=== PATIENT | male | born 1950 | race Caucasian/White ===

== ENCOUNTER 2020-09-17 08:36 | Outpatient (REF) | payer MEDICARE, SELFPAY ==
[2020-09-19 08:26] LABS: Urine Cytology See Pathology rpt
== END 2020-09-17 08:37 | disposition home or self-care (01) ==
LOC: HO.LNP 08:36
PROVIDERS: Visit Provider Urology
DX: C67.9 Malignant neoplasm of bladder, unspecified (principal); Z13.9 Encounter for screening, unspecified; N20.0 Calculus of kidney; R39.9 Unspecified symptoms and signs involving the genitourinary system
CPT/HCPCS: 52000; 81002; 88112; 99212

== ENCOUNTER 2021-02-10 12:03 | Outpatient (REF) | payer MEDICARE, SELFPAY ==
[2021-02-10 14:17] LABS: Glucose Urine UA NEG (NEG); Leukocyte Esterase Urine NEG (NEG); Nitrite Urine NEG (NEG); PH 6.5 (5.0-8.0); Urine Blood NEG (NEG); Urine Ketones NEG (NEG); Urine Protein NEG (NEG-TRACE)
[2021-02-10 14:23] LABS: Appearance Urine CLEAR; Color Urine YELLOW
[2021-02-10 14:43] LABS: RBC Urine 0 /HPF (0)
== END 2021-02-10 12:04 | disposition home or self-care (01) ==
LOC: HO.LAB 12:03
PROVIDERS: Visit Provider Urology
DX: R39.9 Unspecified symptoms and signs involving the genitourinary system (principal)
CPT/HCPCS: 81001; 87086

== ENCOUNTER → 2021-03-19 08:53 | Outpatient (BNVA) | payer MEDICARE, SELFPAY | PROVIDERS: Visit Provider Urology | DX: C67.9 Malignant neoplasm of bladder, unspecified (principal); N20.0 Calculus of kidney | CPT/HCPCS: 52000; 81002; 99212 ==

== ENCOUNTER → 2021-09-18 08:41 | Outpatient (BNVA) | payer MEDICARE, SELFPAY | PROVIDERS: Visit Provider Urology | DX: N20.0 Calculus of kidney (principal); C67.9 Malignant neoplasm of bladder, unspecified | CPT/HCPCS: 52000; 99212 ==

== ENCOUNTER 2022-02-04 15:39 | Outpatient (REF) | payer MEDICARE, SELFPAY ==
[2022-02-04 16:38] LABS: Appearance Urine HAZY; Color Urine YELLOW; Glucose Urine UA NEG (NEG); Leukocyte Esterase Urine 3+ (NEG); Nitrite Urine POS (NEG); PH 6.5 (5.0-8.0); Specific Gravity - Urine <= 1.005 (1.005-1.025); Urine Blood TRACE (NEG); Urine Ketones NEG (NEG); Urine Protein NEG (NEG-TRACE)
[2022-02-04 16:51] LABS: Bacteria Urine 2+ /LPF; Mucus Urine 1+ /LPF; Squamous Epithelial Cell Urine 1+ /LPF
[2022-02-04 16:52] LABS: WBC Clumps Urine NOTED
== END 2022-02-04 15:40 | disposition home or self-care (01) ==
LOC: HO.LAB 15:39
PROVIDERS: Visit Provider Urology
DX: R39.9 Unspecified symptoms and signs involving the genitourinary system (principal)
CPT/HCPCS: 81001; 87086; 87088; 87186

== ENCOUNTER 2022-02-25 11:24 | Outpatient (REF) | payer MEDICARE, SELFPAY ==
--- NOTE | ~2022-02-25 | US_ITS ---
EXAMINATION: US RETROPERITONEAL LIMITED (RENAL ONLY) CLINICAL INFORMATION: Calculus of kidney. COMPARISON: None TECHNIQUE: Real-time imaging of the kidneys. FINDINGS: RIGHT KIDNEY: 10.2 x 4.3 x 4.4 cm (SAG x AP x TRV). The kidney is normal in size, contour, and echogenicity. Renal cortical thickness is normal. No calculi or focal parenchymal lesions. No hydronephrosis. There is a 3 mm echogenic focus within the midpole, likely nonobstructive calculus. LEFT KIDNEY: 12.3 x 6.2 x 6.0 cm (SAG x AP x TRV). The kidney is normal in size, contour, and echogenicity. Renal cortical thickness is normal. No focal parenchymal lesions or hydronephrosis. Multiple echogenic foci present within the lower pole measuring between 3 and 5 mm. US/US renal BI IMPRESSION: Bilateral nonobstructive intrarenal calculi. No hydronephrosis..
== END 2022-02-25 11:25 | disposition home or self-care (01) ==
LOC: HO.US 11:24
PROVIDERS: Visit Provider Urology
DX: N20.0 Calculus of kidney (principal)
CPT/HCPCS: 76775

== ENCOUNTER 2022-03-04 10:42 | Outpatient (REF) | payer MEDICARE, SELFPAY ==
[2022-03-04 12:48] LABS: Appearance Urine HAZY; Color Urine YELLOW; Glucose Urine UA NEG (NEG); Leukocyte Esterase Urine 3+ (NEG); Nitrite Urine POS (NEG); Specific Gravity - Urine 1.025 (1.005-1.025); Urine Blood 1+ (NEG); Urine Ketones NEG (NEG); Urine Protein 1+ MG/DL (NEG-TRACE)
[2022-03-04 13:18] LABS: Bacteria Urine 4+ /LPF
== END 2022-03-04 10:43 | disposition home or self-care (01) ==
LOC: HO.LAB 10:42
PROVIDERS: Visit Provider Urology
DX: R39.9 Unspecified symptoms and signs involving the genitourinary system (principal)
CPT/HCPCS: 81001; 87086

== ENCOUNTER 2022-03-19 08:59 | Outpatient (REF) | payer MEDICARE, SELFPAY ==
[2022-03-19 16:40] LABS: Urine Cytology See Pathology rpt
== END 2022-03-19 09:00 | disposition home or self-care (01) ==
LOC: HO.LAB 08:59
PROVIDERS: Visit Provider Urology
DX: C67.9 Malignant neoplasm of bladder, unspecified (principal); N40.1 Benign prostatic hyperplasia with lower urinary tract symptoms; N39.0 Urinary tract infection, site not specified; N52.01 Erectile dysfunction due to arterial insufficiency
CPT/HCPCS: 52000; 87086; 88112; 99212

== ENCOUNTER → 2022-04-08 08:29 | Outpatient (BNVA) | payer MEDICARE, SELFPAY | PROVIDERS: Visit Provider Urology | DX: N39.0 Urinary tract infection, site not specified (principal); R33.9 Retention of urine, unspecified; C67.9 Malignant neoplasm of bladder, unspecified | CPT/HCPCS: Q3014 ==

== ENCOUNTER 2022-06-04 08:36 | Outpatient (REF) | payer MEDICARE, SELFPAY ==
[2022-06-04 13:04] LABS: Appearance Urine HAZY; Color Urine YELLOW; Glucose Urine UA NEG (NEG); Leukocyte Esterase Urine 3+ (NEG); Nitrite Urine POS (NEG); Specific Gravity - Urine 1.015 (1.005-1.025); Urine Blood 1+ (NEG); Urine Ketones NEG (NEG); Urine Protein NEG (NEG-TRACE)
[2022-06-04 13:46] LABS: Bacteria Urine 1+ /LPF; WBC Urine TNTC /HPF (0-4)
== END 2022-06-04 08:37 | disposition home or self-care (01) ==
LOC: HO.LAB 08:36
PROVIDERS: Visit Provider Urology
DX: N39.0 Urinary tract infection, site not specified (principal)
CPT/HCPCS: 81001; 87086

== ENCOUNTER → 2022-07-08 08:43 | Outpatient (BNVA) | payer MEDICARE, SELFPAY | PROVIDERS: Visit Provider Urology | DX: N39.0 Urinary tract infection, site not specified (principal); R33.9 Retention of urine, unspecified; C67.9 Malignant neoplasm of bladder, unspecified | CPT/HCPCS: Q3014 ==

== ENCOUNTER 2022-10-08 09:57 | Outpatient (REF) | payer MEDICARE, SELFPAY ==
[2022-10-08 17:17] LABS: Urine Cytology See Pathology rpt
== END 2022-10-08 09:58 | disposition home or self-care (01) ==
LOC: HO.LAB 09:57
PROVIDERS: Visit Provider Urology
DX: C67.9 Malignant neoplasm of bladder, unspecified (principal); N30.20 Other chronic cystitis without hematuria
CPT/HCPCS: 52000; 88112; 99212

== ENCOUNTER 2023-03-17 10:18 | Outpatient (REF) | payer MEDICARE, SELFPAY ==
[2023-03-17 11:38] LABS: Appearance Urine Cloudy; Color Urine Dark Yellow; Glucose Urine UA Negative (Negative); Leukocyte Esterase Urine Large (3+) (Negative); Nitrite Urine Positive (Negative); PH 5.5 (5.0-9.0); UMIC TRIGGER UA YES; Urine Blood Trace (Negative); Urine Ketones Trace mg/dL (Negative); Urine Protein 30 (1+) mg/dL (Neg-Trace)
[2023-03-17 11:50] LABS: Bacteria Urine None Seen (None Seen); Calcium Oxalate Crystals Urine Present; Granular Casts Urine Present; Squamous Epithelial Cell Urine 0-2 /HPF (0-2); WBC Urine >50 /HPF (0-5)
== END 2023-03-17 10:19 | disposition home or self-care (01) ==
LOC: HO.LAB 10:18
PROVIDERS: Visit Provider Urology
DX: N39.0 Urinary tract infection, site not specified (principal)
CPT/HCPCS: 81001; 87086

== ENCOUNTER 2023-04-08 09:38 | Outpatient (REF) | payer MEDICARE, SELFPAY | END 2023-04-08 09:39 | disposition home or self-care (01) | LOC: HO.LAB 09:38 | PROVIDERS: Visit Provider Urology | DX: N32.0 Bladder-neck obstruction (principal); R33.9 Retention of urine, unspecified; N52.01 Erectile dysfunction due to arterial insufficiency | CPT/HCPCS: 52000; 99212 ==

== ENCOUNTER 2023-11-11 11:08 | Outpatient (REF) | payer MEDICARE, SELFPAY ==
[2023-11-11 13:20] LABS: PSA,Total (Free>4and<10) 2.41 ng/mL (0.00-4.00)
[2023-11-11 13:37] LABS: Appearance Urine Cloudy; Color Urine Yellow; Glucose Urine UA Negative (Negative); Leukocyte Esterase Urine Large (3+) (Negative); Nitrite Urine Positive (Negative); PH 5.5 (5.0-9.0); UMIC TRIGGER UA YES; Urine Blood Small (1+) (Negative); Urine Ketones Trace mg/dL (Negative); Urine Protein Trace mg/dL (Neg-Trace)
[2023-11-11 13:41] LABS: Bacteria Urine 4+ (None Seen); Hyaline Casts Urine 0-2 /LPF (0-2); Squamous Epithelial Cell Urine 0-2 /HPF (0-2); WBC Urine >50 /HPF (0-5)
== END 2023-11-11 11:09 | disposition home or self-care (01) ==
LOC: HO.LAB 11:08
PROVIDERS: Visit Provider Urology
DX: N39.0 Urinary tract infection, site not specified (principal); N40.1 Benign prostatic hyperplasia with lower urinary tract symptoms; Z12.5 Encounter for screening for malignant neoplasm of prostate
CPT/HCPCS: 36415; 81001; 84153; 87086

== ENCOUNTER 2023-12-13 14:44 | Outpatient (AMB) | payer MEDICARE, SELFPAY ==
--- NOTE | 2023-12-13 15:05 | A.OFFVIS_ITS ---
Intake Intake Visit Reasons: 6m PSA/cysto/SPT discuss Intake Note: Patient is Present for Cystoscopy Urology Med: Finasteride, Sildenafil, Tamsulosin Antibiotic Allergy:None Blood Thinner: None URO- G Disposable Cystoscope lot: [id number] exp: 05/04/2025 Allergies simvastatin Allergy (Unknown, Verified 12/13/23 15:16) Unknown Medication List - Last Reconciled 12/13/23 by Ji Hollis MD alirocumab mg subcut divalproex 500 mg PO BID divalproex mg PO finasteride 5 mg PO DAILY fosfomycin tromethamine 1 packet PO .weekly levetiracetam 1,000 mg PO BID levetiracetam 1,500 mg PO BID levofloxacin 500 mg PO DAILY 10 days sildenafil 100 mg PO ONCE PRN 30 days tamsulosin 0.4 mg PO BEDTIME 90 days HPI HPI Comments History of Present Illness Details Addison is a very pleasant male. He is a patient of Dr Nayely huertas. He is seen for the following conditions - bladder cancer - nephrolithiasis - lower urinary tract symptoms - recurring UTI - incomplete bladder emp tying started after stroke Chronic cystitis No bladder cancer recurrence Discussed prostate procedure as has trilobar hypertrophy Also started discussion regarding suprapubic tube Since stroke in late 2020 has had incomplete bladder emptying, worsened after recent seizure, unable to perform CIC Cystoscopy with inflamed bladder Had been unable to perform clean intermittent catheterization secondary to prostate size and lack of hand function Has remained on fosfomycin suppression which appears to still be working Will continue with fosfomycin 1 dose every 2 weeks Nephrolithiasis Urolithiasis was diagnosed Many years ago. He passed stones frequently. Had previously had bladder stones.. The patient previously had kidney stones whose composition w Uric acid, a calcium oxalate 03/09 CaOx, CaPhO Imaging - 01/11 US right kidney 2.2 cm cyst, left kidney 2 small stones 2 mm Current symptoms include None Bladder Cancer: Diagnosed in October 2012. TURBT. TA low-grade. -Imaging October 2012 negative -Cytology March 2015 negative, Sep 2016 negative, 03/07 Negative, 03/08 Normal -Cystoscopy August 2015 negative, February 2016 negative, Aug 2016 negative, February 2017 Negative, February 2018 Negative August 2018 Negative February 2019 NAD Aug 2019 NAD - has large median lobe on prostate. - Aug 2020 NAD - small harmatoma posterior wall - 03/11 NAD, 09/10 NAD, 09/11 Cystitis chronic Lower Urinary Tract Symptoms: Current visit is for further evaluation of, lower urinary tract symptoms, predominate obstructive symptoms. Current treatment includes flomax, finasteride - had stroke with significant initial deficit Prostate Symptom Score 09/08 , Mild (0-8), Bother 2. Symptoms include 09/08 , incomplete emptying, weak stream, and are stable. PSA 03/2019 1.9 per patient 05/2020 2.35 PFS Medical History Atrial fibrillation OA (osteoarthritis) Benign prostatic hyperplasia with lower urinary tract symptoms Other retention of urine Acute cystitis without hematuria Bilateral nephrolithiasis Bladder calculi Bladder CA in situ Surgical History History of surgery Family History Father Lung cancer Review of Systems Const Denies chills and Denies fever(s) Card Reports no additional complaints and Denies syncope Resp Denies cough GI Denies abdominal pain and Denies heartburn Reports as per HPI and Denies change in libido Neuro Denies syncope Psych Denies change in libido Endo Denies change in libido Physical Exam Const General: cooperative, healthy appearing, comfortable and no acute distress Orientation/consciousness: patient oriented x3 HEENT Face and sinus: Yes normal facial exam Mouth: moist mucous membranes Neck Neck: Yes normal visual inspection, Yes full ROM and Yes trachea midline Chest Chest palpation & inspection: normal inspection of the chest Resp Effort & Inspection: normal respiratory effort, able to speak in complete sentences and no respiratory distress GI Inspection: Yes normal to inspection Back/Spine/Pelvis Cervical Spine: normal cervical lordosis Thoracic/Lumbar Spine: thoracic and lumbar spine normal to inspection Skin General skin exam: no rashes or lesions noted Neuro General: patient oriented x3, gait normal, tone normal and moves all extremities Extrem General: Yes normal to inspection and Yes capillary refill normal Office Procedures Cystoscopy Consent Discussed risk and benefit or proposed procedure with the patient. Information consent for procedure given to the patient. Discussed technical aspects, risks, benefits and alternatives in full. Addressed all of the patient's questions and concerns regarding the procedure. The patient demonstrated knowledge and understanding. They wish to proceed with this procedure. Preparation The patient was prepped in the usual manner. A laborer pole crew was present and in the room. Genitalia was prepped with betadine solution in a sterile manner. Lidocaine Jelly 2% was placed into the urethra and 16Fr flexible Olympus cystoscope was inserted into the meatus after adequate lubrication. Procedure Meatus circumcised Urethra anterior and posterior urethra normal Prostatic Urethra trilobar hyperplasia Bladder examination with retroflexion of cystoscope Bladder Orifices normal shape and position Bladder Capacity large Trabeculations grade 2 Cellule Formation yes Diverticulum Formation - Mucosal Erythema - Bladder Tumor - [id number] DISPOSABLE SCOPE URO-G FLEXIBLE SCOPE Procedure code (CPT) selection complete Office Meds lidocaine HCl 2 % mucosal jelly in applicator Performing Provider: Ji Hollis MD Performing Location: [facility] Administered by: Debra Lipscomb RN on 12/13/23 15:33 Dose Route Admin Location Dispensed Lot Number Expiration Date [facility] [employer] Maker 10 mL intra-urethral 10 mL nitrofurantoin monohydrate/macrocrystals 100 mg capsule Performing Provider: Ji Hollis MD Performing Location: [facility] Administered by: Debra Lipscomb RN on 12/13/23 15:33 2 Dose Route Admin Location Dispensed Lot Number Expiration Date [place] [employer] Maker 100 mg PO 1 cap naproxen 500 mg tablet Performing Provider: Ji Hollis MD Performing Location: [facility] Administered by: Debra Lipscomb RN on 12/13/23 15:33 Dose Route Admin Location Dispensed Lot Number Expiration Date [place] [employer] Maker 500 mg PO 1 tab Results AMB Urinalysis, Automated UA Leukoctes 125 Pablo/uL Last Edit by ELMO Guzman on 12/13/23 15:17 UA Nitrite Positive Last Edit by ELMO Guzman on 12/13/23 15:17 UA Urobilinogen 0.2 mg/dL Last Edit by ELMO Guzman on 12/13/23 15:1 7 UA Protein 15 mg/dL Last Edit by ELMO Guzman on 12/13/23 15:17 UA pH 6.0 Last Edit by ELMO Guzman on 12/13/23 15:17 UA Blood 10 Ian/uL Last Edit by Cheyenne López, RMA on 12/13/23 15:17 UA Specific [place] 1.020 Last Edit by Cheyenne López, RMA on 12/13/23 15: 17 UA Ketone Negative Last Edit by Cheyenne López, RMA on 12/13/23 15:17 UA Bilirubin 0 mg/dL Last Edit by Cheyenne López, RMA on 12/13/23 15:17 UA Glucose 0 mg/dL Last Edit by Cheyenne Masonro, RMA on 12/13/23 15:17 Results Reviewed Results Reviewed: Laboratory Last Values Urine pH (Auto) 6.0 12/13/23 15:16 Specific [place] (Auto) 1.020 12/13/23 15:16 Urine Protein (Auto) 15 mg/dL 12/13/23 15:16 Glucose (UA)(Auto) 0 mg/dL 12/13/23 15:16 Urine Ketones (Auto) Negative 12/13/23 15:16 Urine Blood (Auto) 10 Ian/uL 12/13/23 15:16 Urine Nitrite (Auto) Positive 12/13/23 15:16 Urine Bilirubin (Auto) 0 mg/dL 12/13/23 15:16 Urine Urobilinogen (Auto) 0.2 mg/dL 12/13/23 15:16 Leukocyte Esterase (Auto) 125 Pablo/uL 12/13/23 15:16 Assessment & Plan Assessment & Plan (1) Chronic cystitis: Code(s): N30.20 - Other chronic cystitis without hematuria (2) Urinary retention with incomplete bladder emptying: Comment: Worsened following stroke in 2020 Code(s): R33.9 - Retention of urine, unspecified Plan Risks, benefits and alternatives to therapy were discussed. These include but are not limited to infection, bleeding, damage to local organs and tissues, need for further interventions. Anesthetic risks regarding cardiac arrhythmia, blood clots, and potential mortality were discussed. The patient understands the typical recovery time and the outpatient nature of the procedure. After consideration of these risks the patient gives full informed consent and they wish to move ahead with the procedure. GreenLight laser prostatectomy Orders: Orders AMB Urinalysis Automated 12/13/23 Z13.9 - Encounter for screening, unspecified AMB Cystoscopy 12/13/23 N30.20 - Other chronic cystitis without hematuria, R33.9 - Retention of urine, unspecified, C67.9 - Malignant neoplasm of bladder, unspecified, R39.9 - Unspecified symptoms and signs involving the genitourinary system AMB Post Void Residual by ultrasound 12/13/23 R33.9 - Retention of urine, unspecified Patient Instructions: Imaging studies, laboratory and physical exam results were discussed and reviewed in detail. No major barriers to patient understanding were identified. An opportunity to ask questions regarding the treatment plan was provided. All questions were answered. The patient expressed understanding and agreement with the above treatment plan. The patient is aware they should contact our office by phone for worsening of their current condition or the appearance of new urologic symptoms. Compliance is encouraged with any medications and followup testing that is ordered. It is a privilege to participate in the urologic care of your patient. If you have any questions or concerns regarding treatment for the above conditions, or other urologic issues, please do not hesitate to contact me. The office telephone contact is [phone]. This note is constructed using voice recognition software. While every effort has been made to ensure accuracy cherry picker operator errors may have been included. Yours sincerely, Dr Ji Hollis MD, [facility] - Urology Providers of Expert, Compassionate Care for the Genitourinary System Coding Level of Care Code Est Pt Level 4 (29189) Diagnoses Chronic cystitis N30.20 Urinary retention with incomplete bladder emptying R33.9 CPT Codes Cystoscopy - CPT: [id number] ([id number])
== END 2023-12-13 15:57 | disposition home or self-care (01) ==
PROVIDERS: Visit Provider Urology
DX: N30.20 Other chronic cystitis without hematuria (principal); R33.9 Retention of urine, unspecified; C67.9 Malignant neoplasm of bladder, unspecified; R39.9 Unspecified symptoms and signs involving the genitourinary system; Z13.9 Encounter for screening, unspecified
CPT/HCPCS: 52000; 99214

== ENCOUNTER → 2023-12-13 14:44 | Outpatient (BNVA) | payer MEDICARE, SELFPAY | PROVIDERS: Visit Provider Urology | DX: N30.20 Other chronic cystitis without hematuria (principal); R33.9 Retention of urine, unspecified; N20.0 Calculus of kidney; Z85.51 Personal history of malignant neoplasm of bladder | CPT/HCPCS: 52000; 81003; 99212 ==

== ENCOUNTER 2024-02-07 14:28 | Outpatient (AMB) | payer MEDICARE, SELFPAY ==
--- NOTE | 2024-02-07 14:29 | A.OFFVIS_ITS ---
Intake Visit Reasons: H&P Greenlight Intake Note: Patient is Present for Telephone Follow Up h&p Urology Med: Finasteride, Tamsulosin, Sildenafil Antibiotic Allergy: none Blood Thinner:none Allergies simvastatin Allergy (Unknown, Verified 02/13/24 08:31) Unknown martinez pepper Allergy (Verified 02/13/24 08:31) Anaphylaxis codeine Allergy (Verified 02/13/24 08:31) Unknown losartan Allergy (Verified 02/13/24 08:31) Flushing NSAIDS (Non-Steroidal Anti-Inflamma Allergy (Verified 02/13/24 08:31) Unknown HPI Comments Details: Addison is a very pleasant male. He is a patient of Dr Bazzi. He is seen for the following conditions - bladder cancer - nephrolithiasis - lower urinary tract symptoms - recurring UTI - incomplete bladder emptying started after stroke Telemedicine Evaluation 15 min Consultation [employer] Preference for spinal anesthetic - has had multiple in past Plan upcoming laser prostate surgery Chronic cystitis No bladder cancer recurrence Discussed prostate procedure as has trilobar hypertrophy Also started discussion regarding suprapubic tube Since stroke in late 2020 has had incomplete bladder emptying, worsened after recent seizure, unable to perform CIC Cystoscopy with inflamed bladder Had been unable to perform clean intermittent catheterization secondary to prostate size and lack of hand function Has remained on fosfomycin suppression which appears to still be working Will continue with fosfomycin 1 dose every 2 weeks Nephrolithiasis Urolithiasis was diagnosed Many years ago. He passed stones frequently. H ad previously had bladder stones.. The patient previously had kidney stones whose composition w Uric acid, a calcium oxalate 03/09 CaOx, CaPhO Imaging - 01/11 US right kidney 2.2 cm cyst, left kidney 2 small stones 2 mm Current symptoms include None Bladder Cancer: Diagnosed in October 2012. TURBT. TA low-grade. -Imaging October 2012 negative -Cytology March 2015 negative, Sep 2016 negative, 03/07 Negative, 03/08 Normal -Cystoscopy August 2015 negative, February 2016 negative, Aug 2016 negative, February 2017 Negative, February 2018 Negative August 2018 Negative February 2019 NAD Aug 2019 NAD - has large median lobe on prostate. - Aug 2020 NAD - small harmatoma posterior wall - 03/11 NAD, 09/10 NAD, 09/11 Cystitis chronic Lower Urinary Tract Symptoms: Current visit is for further evaluation of, lower urinary tract symptoms, predominate obstructive symptoms. Current treatment includes flomax, finasteride - had stroke with significant initial deficit Prostate Symptom Score 09/08 , Mild (0-8), Bother 2. Symptoms include 09/08 , incomplete emptying, weak stream, and are stable. PSA 03/2019 1.9 per patient 05/2020 2.35 [facility] Medical History CVA (cerebral vascular accident) Seizures Hx of carpal tunnel syndrome Hx of glossitis Hyperlipidemia History of cardioversion Atrial fibrillation OA (osteoarthritis) Benign prostatic hyperplasia with lower urinary tract symptoms Other retention of urine Acute cystitis without hematuria Bilateral nephrolithiasis Bladder calculi Bladder CA in situ Surgical History History of total left knee replacement History of total right knee replacement History of total hip replacement Hx of carpal tunnel repair Hx of eye surgery Hx of arthroscopy of knee H/O colonoscopy Hx of brain surgery History of surgery Family History Father Lung cancer Social History Patient Tobacco Use Status: Never used Tobacco Review of Systems Const All systems reviewed & are unremarkable except as noted in HPI and below Reports no additional complaints Resp Reports no additional complaints GI Reports no additional complaints Reports as per HPI Musc Reports no additional complaints Physical Exam Telemedicine evaluation Appropriate responses Regular breathing rate and rhythm HEENT Head: Yes normal to inspection Ears: hearing grossly normal bilaterally Eyes General: appearance normal, both eyes and all related structures Neck Neck: Yes normal visual inspection Chest Chest palpation & inspection: normal inspection of the chest Resp Effort & Inspection: normal respiratory effort and able to speak in complete sentences Telehealth Telehealth Location of provider rendering services: practice address Location of patient: address on file Patient Identification confirmed using: Name, : Yes Telehealth method: video Patient verbally consented to treatment: Yes Patient verbally consented to billing insurance company: Yes Patient informed of any privacy concerns related to visit: Yes Assessment & Plan Assessment & Plan (1) Chronic cystitis: Code(s): N30.20 - Other chronic cystitis without hematuria Category: Medical (2) Urinary retention with incomplete bladder emptying: Comment: Worsened following stroke in 2020 Code(s): R33.9 - Retention of urine, unspecified Category: Medical (3) Benign prostatic hyperplasia with lower urinary tract symptoms: Code(s): N40.1 - Benign prostatic hyperplasia with lower urinary tract symptoms Category: Medical Plan Procedure as planned Patient Instructions: Imaging studies, laboratory and physical exam results were discussed and reviewed in detail. No major barriers to patient understanding were identified. An opportunity to ask questions regarding the treatment plan was provided. All questions were answered. The patient expressed understanding and agreement with the above treatment plan. The patient is aware they should contact our office by phone for worsening of their current condition or the appearance of new urologic symptoms. Compliance is encouraged with any medications and followup testing that is ordered. It is a privilege to participate in the urologic care of your patient. If you have any questions or concerns regarding treatment for the above conditions, or other urologic issues, please do not hesitate to contact me. The office telephone contact is [phone]. This note is constructed using voice recognition software. While every effort has been made to ensure accuracy histological illustrator errors may have been included. Yours sincerely, Dr Ji Hollis MD, [facility] - Urology Providers of Expert, Compassionate Care for the Genitourinary System
== END 2024-02-07 15:45 | disposition home or self-care (01) ==
LOC: HO.HUSH 14:28
PROVIDERS: Visit Provider Urology
DX: N30.20 Other chronic cystitis without hematuria (principal); R33.9 Retention of urine, unspecified; N40.1 Benign prostatic hyperplasia with lower urinary tract symptoms
CPT/HCPCS: 99213

== ENCOUNTER → 2024-02-07 14:28 | Outpatient (BNVA) | payer MEDICARE, SELFPAY | PROVIDERS: Visit Provider Urology ==

== ENCOUNTER 2024-02-13 07:55 | Day surgery (SDC) | payer MEDICARE, SELFPAY ==
--- NOTE | 2024-02-10 12:10 | HO.ANESPROP2 ---
Documented by User: Sarai Abel NP 02/10/24 12:13 HPI - Anesthesia Eval Consult details Narrative: 73yo M for Laser Ablation Prostate w/Green Light Cardiac cleared PAF - no anticoag d/t hx hemmorhagic stroke 2013 and subdural hematoma 2017 [facility] Active Problems Active Problems: All Active Problems (Updated 02/09/24 @ 10:38 by Deana Kitchen RN) Chronic cystitis (Acute) Urinary retention with incomplete bladder emptying (Acute) Erectile dysfunction due to arterial insufficiency (Acute) Recurrent UTI (Acute) UTI symptoms (Acute) Bladder cancer (Acute) Nephrolithiasis (Acute) Benign prostatic hyperplasia with lower urinary tract symptoms (Acute) Past Medical History Medical History CVA (cerebral vascular accident) Seizures Hx of carpal tunnel syndrome Hx of glossitis Hyperlipidemia History of cardioversion Atrial fibrillation OA (osteoarthritis) Benign prostatic hyperplasia with lower urinary tract symptoms Other retention of urine Acute cystitis without hematuria Bilateral nephrolithiasis Bladder calculi Bladder CA in situ Family History Family History Father Lung cancer Surgical History Surgical History History of total left knee replacement History of total right knee replacement History of total hip replacement Hx of carpal tunnel repair Hx of eye surgery Hx of arthroscopy of knee H/O colonoscopy Hx of brain surgery History of surgery Social History Social History Patient Tobacco Use Status: Never used Tobacco Meds Allergies Allergy/AdvReac Type Severity Reaction Status Date / Time simvastatin Allergy Unknown Unknown Verified 02/13/24 08:31 martinez pepper Allergy Anaphylaxis Verified 02/13/24 08:31 codeine Allergy Unknown Verified 02/13/24 08:31 losartan Allergy Flushing Verified 02/13/24 08:31 NSAIDS (Non-Steroidal Allergy Unknown Verified 02/13/24 08:31 Anti-Inflamma Home Medications Medication Instructions Recorded Confirmed Last Taken Type alirocumab 75 mg/mL subcutaneous mg subcut 09/17/20 12/13/23 Unknown History pen injector divalproex 500 mg tablet,delayed 500 mg PO BID 09/17/20 02/13/24 02/13/24 History release finasteride 5 mg tablet 5 mg PO DAILY 09/17/20 12/13/23 Unknown History divalproex 250 mg tablet,delayed 250 mg PO BID 04/08/22 02/13/24 02/13/24 History release levetiracetam 1,000 mg tablet 1,000 mg PO BID 04/08/22 02/13/24 02/13/24 History levetiracetam 750 mg tablet 1,500 mg PO BID 04/08/23 02/13/24 02/13/24 History Exam Narrative Narrative: EKG 12/2023 SB @ [address] and t wave abn ECHO 2021 (per clearance note) LVEF 53% with beat to beat variability. RV dilation and reduced function. No signif valve ds. Trivial pericardial effusion. Assessment and Plan Assessment Anesthesia Assessment: Chart Reviewed Documented by User: Dean Kerr MD 02/13/24 10:01 [facility] Past Medical History Medical History CVA (cerebral vascular accident) Seizures Hx of carpal tunnel syndrome Hx of glossitis Hyperlipidemia History of cardioversion Atrial fibrillation OA (osteoarthritis) Benign prostatic hyperplasia with lower urinary tract symptoms Other retention of urine Acute cystitis without hematuria Bilateral nephrolithiasis Bladder calculi Bladder CA in situ Family History Family History Father Lung cancer Family history of problems with anesthesia: No Surgical History Surgical History History of total left knee replacement History of total right knee replacement History of total hip replacement Hx of carpal tunnel repair Hx of eye surgery Hx of arthroscopy of knee H/O colonoscopy Hx of brain surgery History of surgery History of Problems with Anesthesia: No Social History Social History Patient Tobacco Use Status: Never used Tobacco Meds Allergies Allergy/AdvReac Type Severity Reaction Status Date / Time simvastatin Allergy Unknown Unknown Verified 02/13/24 08:31 martinez pepper Allergy Anaphylaxis Verified 02/13/24 08:31 codeine Allergy Unknown Verified 02/13/24 08:31 losartan Allergy Flushing Verified 02/13/24 08:31 NSAIDS (Non-Steroidal Allergy Unknown Verified 02/13/24 08:31 Anti-Inflamma Home Medications Medication Instructions Recorded Confirmed Last Taken Type alirocumab 75 mg/mL subcutaneous mg subcut 09/17/20 12/13/23 Unknown History pen injector divalproex 500 mg tablet,delayed 500 mg PO BID 09/17/20 02/13/24 02/13/24 History release finasteride 5 mg tablet 5 mg PO DAILY 09/17/20 12/13/23 Unknown History divalproex 250 mg tablet,delayed 250 mg PO BID 04/08/22 02/13/24 02/13/24 History release levetiracetam 1,000 mg tablet 1,000 mg PO BID 04/08/22 02/13/24 02/13/24 History levetiracetam 750 mg tablet 1,500 mg PO BID 04/08/23 02/13/24 02/13/24 History Exam Airway Mallampati Class: I TM Dist: >3cm Neck ROM: Full Loose/Missing/Broken Teeth: No Heart: ok Lungs: ok Assessment and Plan Assessment Anesthesia Assessment: Anesthesia Plan Discussed Final Anesthetic Review Family History of Problems with Anesthesia: No History of Problems with Anesthesia: No NPO: Yes ASA Class: III Final Preanesthetic Review: No Changes in Pt Med Stat, Meds/Allgs Chart Reviewed, Consent Obtained/Reviewed and Anes Risks/Benef Reviewed Patient Risk: Intermediate Procedure Risk: Low Anesthetic Plan Anesthetic Plan: GA and Agree w/ Assess. and Plan Disposition: Standard PACU
[2024-02-13] VITALS (7 sets, daily range): BP systolic 98–117; BP diastolic 61–72; PULSE 50–59; RESP 16; TEMP 36.1–36.2; O2SAT 94–99; BMI 24.1
[2024-02-13] MEDS: Lactated Ringers 1,000 ML 100 ML IVCONT (08:48)
--- NOTE | 2024-02-13 09:23 | MHC.SHP ---
Pre-Procedural Eval Section A - 24 Hr Update-Section A only Date of Service: 02/13/24 The patient is an INPATIENT: No Changes since office visit: No Cold of Flu in the past 2 weeks, No New Medical Problems, No Changes in Medication and No Patient answered all questions The patient has been examined within 24 hours of the surgical procedure. The History & Physical has been completed within 30 days and I have reviewed it.: Yes Section B - Complete if H&P > 30 days Chief Complaint: Retention of urine, unspecified Allergies: Allergies Allergy/AdvReac Type Severity Reaction Status Date / Time simvastatin Allergy Unknown Unknown Verified 02/13/24 08:31 martinez pepper Allergy Anaphylaxis Verified 02/13/24 08:31 codeine Allergy Unknown Verified 02/13/24 08:31 losartan Allergy Flushing Verified 02/13/24 08:31 NSAIDS (Non-Steroidal Allergy Unknown Verified 02/13/24 08:31 Anti-Inflamma Plan Diagnosis/Plan: Unchanged (GreenLight laser prostatectomy) I have reviewed the history and physical and performed a pertinent physical examination on my patient. No changes have occurred unless specified. Time Spent With Patient Time: Total time managing care of this patient today ____ minutes.
--- NOTE | 2024-02-13 10:45 | P.OP_ITS ---
Operative Note Operative Note Date of Service: 02/13/24 Narrative: PreOperative Diagnosis: Bladder outlet obstruction Post Operative Diagnosis: 1) Bladder outlet obstruction 2) Bladder stone laser >2cm Procedure: 1) bladder stone holmium laser 2) GreenLight Laser Enucleation of the prostate CPT 09325 Surgeon: Dr Ji Hollis Anesthesia: General Indications for procedure: progressive increase in PVR History of bladder outlet obstruction. Treated with alpha-jaimee and other medications. Still with symptoms. On cystoscopy in office has trilobar prostate. Recommendation for prostate procedure with laser enucleation of prostate. Risks and benefits have been discussed. Focus was placed on development of retrograde ejaculation which is a normal part of this procedure. Procedure: After informed consent was verified the patient was brought to the operating room and placed in a supine position. Anesthesia was administered per protocol. Patient was placed in modified dorsal lithotomy position and prepped and draped in a sterile fashion. Safety pause time-out was confirmed. Antibiotics have been given. A Twenty-four Macedonian laser cystoscope was inserted per urethra. No abnormalities were found of the anterior and bulbar urethra. The bladder was examined and both ureteric orifices were seen in their normal positions away from the area of interest. 2cm bladder stone encountered Using Holmium laser with 865nm fiber and setttings of 12W the stone was broken into small pieces and flushed from the bladder Using a GreenLight laser with settings of 80 w incisions were made at the 5 and 7 o'clock position. The incisions were taken down from the bladder neck down to the level of the veru. These were gradually deepened in order to define the lateral aspects of the median lobe area. Once clearly defined they will also extended in the lateral directions in order to create a deep groove. The median lobe was then ablated and enucleated tissue released into the bladder with the laser power increased to 120 W. Once the median lobe area had been cleared attention was directed to the lateral lobes. Starting with the patient's left lateral lobe. First the 05:00 o'clock groove was further developed. This was moved in the lateral direction to undermine the tissue on the lateral side running from the bladder neck to the prostate apex. Focus was then placed on the laser at the 1 o'clock position to developing a secondary groove down to the level of bladder fibers. The creation of a second deep groove defined a segment of intervening tissue similar to a slice of orange. At the apex of the prostate the 2 grooves were linked the us releasing the intervening tissue. This tissue was then removed with a combination of enucleation and ablation working from the apex toward the bladder neck. A similar procedure was repeated on the patient's right-hand side. The only differences being the position of the lateral groove at the 7 'oclock position and the secondary groove at the 11 o'clock position, Otherwise the procedure was developed in a mirror fashion. After the majority of tissue had been debulked remnant tissue was ablated with the side fire laser and the curve of the prostate followed up each side wall clearly defining the anterior remnant strip that remained between the 11 and 1 o'clock positions. In this case the anterior tissue protruded into the prostatic fossa and was partially ablated with the laser When this was had been completed debris and pieces of prostate were removed from the bladder with irrigation. Both ureteric orifices were reviewed again in shown to be patent in away from any areas of energy damage. The apical area was reviewed in any stray ooze was controlled. A 22 Macedonian 30 cc balloon Greene catheter was placed over a stylet into the bladder. Clear efflux was obtained upopn irrigation with a Papito piston syringe. 50 cc was placed in the balloon and gentle traction was placed. A snap was used to hold tension on the catheter to control bleeding during patient moved and transported. A drainage bag was placed. Once transportation is complete to the PACU the snap will be removed. The patient tolerated the procedure well, he was extubated in the operating and transferred in a stable condition to the recovery area. Total Power 150 kW Lasing time 34 min Pathology: Prostate tissue Drains: Greene catheter
--- NOTE | 2024-02-13 13:01 | HO.INF ---
PATIENT BROUGHT BACK TO PACU AT THIS TIME. PATIENT HAVING DIFFICULTY URINATING. APPROX 50 ML OUT CRANBERRY COLOR WITH SOME CLOTS. BLADDER FEELS DISTENDED. PATIENT STATES HE DOES NOT FEEL RIGHT.
--- NOTE | 2024-02-13 13:14 | PC.NURSE ---
Pt back to PACU. Complaining of bladder feeling full . Lower abd non tender, non distended,pt states that it doesnt feel tight like a drum . Catheter appears patent and draining pink tinged urine. Bladder scanned for 3ml. Pt back to discharge area.
--- NOTE | 2024-02-13 14:02 | HO.INF ---
PATIENT BROUGHT BACK TO THE DC AREA AFTER BLADDER SCAN COMPLETED IN PACU. PATIENT STATES HE FEELS BETTER. PATIENT BEING DC'D HOME.
== END 2024-02-13 14:04 | disposition home or self-care (01) ==
PROVIDERS: Visit Provider Urology
PROC: (CPT 52648; principal; 2024-02-13 11:00)
DX: N40.1 Benign prostatic hyperplasia with lower urinary tract symptoms (principal); R33.8 Other retention of urine; N32.0 Bladder-neck obstruction; N30.20 Other chronic cystitis without hematuria; Z87.442 Personal history of urinary calculi; Z85.51 Personal history of malignant neoplasm of bladder; I48.91 Unspecified atrial fibrillation; Z86.73 Personal history of transient ischemic attack (TIA), and cerebral infarction without residual deficits; Z79.899 Other long term (current) drug therapy; Z88.8 Allergy status to other drugs, medicaments and biological substances; Z98.890 Other specified postprocedural states
CPT/HCPCS: 52649; 52317; 88305; J1956; J2704; J3010

== ENCOUNTER → 2024-02-13 07:55 | Outpatient (BNV) | payer MEDICARE, SELFPAY | PROVIDERS: Visit Provider Urology | DX: N32.0 Bladder-neck obstruction (principal); N21.0 Calculus in bladder | CPT/HCPCS: 52317; 52649 ==

== ENCOUNTER → 2024-02-17 08:23 | Outpatient (BNVA) | payer MEDICARE, SELFPAY | PROVIDERS: Visit Provider Urology | DX: R33.9 Retention of urine, unspecified (principal) | CPT/HCPCS: 51700; 51798 ==

== ENCOUNTER 2024-03-21 11:27 | Outpatient (REF) | payer MEDICARE, SELFPAY | END 2024-03-21 11:28 | disposition home or self-care (01) | LOC: HO.LAB 11:27 | PROVIDERS: Visit Provider Urology | DX: C67.9 Malignant neoplasm of bladder, unspecified (principal); R33.9 Retention of urine, unspecified; R39.9 Unspecified symptoms and signs involving the genitourinary system; Z86.73 Personal history of transient ischemic attack (TIA), and cerebral infarction without residual deficits | CPT/HCPCS: 51798; 81003; 87086; 99212 ==

== ENCOUNTER 2024-03-21 11:27 | Outpatient (AMB) | payer MEDICARE, SELFPAY ==
--- NOTE | 2024-03-21 11:40 | A.OFFVIS_ITS ---
Intake Visit Reasons: 6wks Follow up - Greenlight Intake Note: Patient Is Present for Post Op Follow up Procedure Done: [facility] Med: Tamsulosin, Sildenafil, Finasteride Antibiotic Allergy:None Blood Thinner: None PVR: Allergies simvastatin Allergy (Unknown, Verified 03/21/24 11:41) Unknown martinez pepper Allergy (Verified 03/21/24 11:41) Anaphylaxis codeine Allergy (Verified 03/21/24 11:41) Unknown losartan Allergy (Verified 03/21/24 11:41) Flushing NSAIDS (Non-Steroidal Anti-Inflamma Allergy (Verified 03/21/24 11:41) Unknown HPI Comments Details: Addison is a very pleasant male. He is a patient of Dr Bazzi. He is seen for the following conditions - bladder cancer - nephrolithiasis - lower urinary tract symptoms - recurring UTI - incomplete bladder emptying started after stroke Follow-up GreenLight laser Postoperative course was vic after he had another fall Significant improvement in bladder emptying Nocturia x2 down from 6 Very happy with stream PVR today 25 cc May have UTI Culture performed Will do 3 doses of fosfomycin since he has this on hand Six-month follow-up cysto for bladder cancer Nephrolithiasis Urolithiasis was diagnosed Many years ago. He passed stones frequently. Had previously had bladder stones.. The patient previously had kidney stones whose composition w Uric acid, a calcium oxalate 03/09 CaOx, CaPhO Imaging - 01/11 US right kidney 2.2 cm cyst, left kidney 2 small stones 2 mm Current symptoms include None Bladder Cancer: Diagnosed in October 2012. TURBT. TA low-grade. -Imaging October 2012 negative -Cytology March 2015 negative, Sep 2016 negative, 03/07 Negative, 03/08 Normal -Cystoscopy August 2015 negative, February 2016 negative, Aug 2016 negative, February 2017 Negative, February 2018 Negative August 2018 Negative February 2019 NAD Aug 2019 NAD - has large median lobe on prostate. - Aug 2020 NAD - small harmatoma posterior wall - 03/11 NAD, 09/10 NAD, 09/11 Cystitis chronic Lower Urinary Tract Symptoms: Current visit is for further evaluation of, lower urinary tract symptoms, predominate obstructive symptoms. Current treatment includes flomax, finasteride - had stroke with significant initial deficit Prostate Symptom Score 09/08 , Mild (0-8), Bother 2. Symptoms include 09/08 , incomplete emptying, weak stream, and are stable. PSA 03/2019 1.9 per patient 05/2020 2.35 [facility] Medical History CVA (cerebral vascular accident) Seizures Hx of carpal tunnel syndrome Hx of glossitis Hyperlipidemia History of cardioversion Atrial fibrillation OA (osteoarthritis) Benign prostatic hyperplasia with lower urinary tract symptoms Other retention of urine Acute cystitis without hematuria Bilateral nephrolithiasis Bladder calculi Bladder CA in situ Surgical History History of total left knee replacement History of total right knee replacement History of total hip replacement Hx of carpal tunnel repair Hx of eye surgery Hx of arthroscopy of knee H/O colonoscopy Hx of brain surgery History of surgery Family History Father Lung cancer Social History Patient Tobacco Use Status: Never used Tobacco Review of Systems Const Denies chills and Denies fever(s) Card Reports no additional complaints and Denies syncope Resp Denies cough GI Denies abdominal pain and Denies heartburn Reports as per HPI and Denies change in libido Neuro Denies syncope Psych Denies change in libido Endo Denies change in libido Physical Exam Const General: cooperative, healthy appearing, comfortable and no acute distress Orientation/consciousness: patient oriented x3 HEENT Face and sinus: Yes normal facial exam Mouth: moist mucous membranes Neck Neck: Yes normal visual inspection, Yes full ROM and Yes trachea midline Chest Chest palpation & inspection: normal inspection of the chest Resp Effort & Inspection: normal respiratory effort, able to speak in complete sentences and no respiratory distress GI Inspection: Yes normal to inspection Back/Spine/Pelvis Cervical Spine: normal cervical lordosis Thoracic/Lumbar Spine: thoracic and lumbar spine normal to inspection Skin General skin exam: no rashes or lesions noted Neuro General: patient oriented x3, gait normal, tone normal and moves all extremities Extrem General: Yes normal to inspection and Yes capillary refill normal Office Procedures Post Void Residual Post Residual Void Post Void Residual (PVR): 15 [id number]-[id number] Void Residual by ultrasound Results AMB Urinalysis, Automated UA Leukoctes 500 Pablo/uL Last Edit by ELMO Guzman on 03/21/24 11:44 UA Nitrite Positive Last Edit by Cheyenne López, A on 03/21/24 11:44 UA Urobilinogen 0.2 mg/dL Last Edit by Cheyenne López, A on 03/21/24 11:4 4 UA Protein 30 mg/dL Last Edit by Cheyenne López, A on 03/21/24 11:44 UA pH 6.5 Last Edit by Cheyenne López, A on 03/21/24 11:44 UA Blood 80 Ian/uL Last Edit by Cheyenen López, A on 03/21/24 11:44 UA Specific [place] 1.015 Last Edit by Cheyenne López, A on 03/21/24 11: 44 UA Ketone Negative Last Edit by Cheyenne López, A on 03/21/24 11:44 UA Bilirubin 0 mg/dL Last Edit by Cheyenne López, A on 03/21/24 11:44 UA Glucose 0 mg/dL Last Edit by Cheyenne López, A on 03/21/24 11:44 Results Reviewed Results Reviewed: Laboratory Last Values Urine pH (Auto) 6.5 03/21/24 11:36 Specific [place] (Auto) 1.015 03/21/24 11:36 Urine Protein (Auto) 30 mg/dL 03/21/24 11:36 Glucose (UA)(Auto) 0 mg/dL 03/21/24 11:36 Urine Ketones (Auto) Negative 03/21/24 11:36 Urine Blood (Auto) 80 Ian/uL 03/21/24 11:36 Urine Nitrite (Auto) Positive 03/21/24 11:36 Urine Bilirubin (Auto) 0 mg/dL 03/21/24 11:36 Urine Urobilinogen (Auto) 0.2 mg/dL 03/21/24 11:36 Leukocyte Esterase (Auto) 500 Pablo/uL 03/21/24 11:36 Assessment & Plan Assessment & Plan (1) Bladder cancer: Code(s): C67.9 - Malignant neoplasm of bladder, unspecified Category: Medical (2) Urinary retention with incomplete bladder emptying: Comment: Worsened following stroke in 2020 Code(s): R33.9 - Retention of urine, unspecified Category: Medical Plan Six-month follow-up cysto Orders: Orders Urine Culture Today N39.0 - Urinary tract infection, site not specified AMB Post Void Residual by ultrasound Today R33.9 - Retention of urine, unspecified AMB Urinalysis Automated Today R39.9 - Unspecified symptoms and signs involving the genitourinary system, Z13.9 - Encounter for screening, unspecified Patient Instructions: Imaging studies, laboratory and physical exam results were discussed and reviewed in detail. No major barriers to patient understanding were identified. An opportunity to ask questions regarding the treatment plan was provided. All questions were answered. The patient expressed understanding and agreement with the above treatment plan. The patient is aware they should contact our office by phone for worsening of their current condition or the appearance of new urologic symptoms. Compliance is encouraged with any medications and followup testing that is ordered. It is a privilege to participate in the urologic care of your patient. If you have any questions or concerns regarding treatment for the above conditions, or other urologic issues, please do not hesitate to contact me. The office telephone contact is [phone]. This note is constructed using voice recognition software. While every effort has been made to ensure accuracy infant childcare provider errors may have been included. Yours sincerely, Dr Ji Hollis MD, [facility] - Urology Providers of Expert, Compassionate Care for the Genitourinary System Coding Level of Care Code Est Pt Level 3 (26473) Diagnoses Bladder cancer C67.9 Urinary retention with incomplete bladder emptying R33.9 CPT Codes Post Residual Void - PVR CPT Code: 02176-Uajm Void Residual by ultrasound ([id number])
== END 2024-03-21 11:59 | disposition home or self-care (01) ==
PROVIDERS: Visit Provider Urology
DX: C67.9 Malignant neoplasm of bladder, unspecified (principal); R33.9 Retention of urine, unspecified; Z13.9 Encounter for screening, unspecified; R39.9 Unspecified symptoms and signs involving the genitourinary system
CPT/HCPCS: 99024

== ENCOUNTER 2024-09-21 12:52 | Outpatient (REF) | payer MEDICARE, SELFPAY ==
[2024-09-21 15:54] LABS: Urine Cytology See Pathology rpt
== END 2024-09-21 12:53 | disposition home or self-care (01) ==
LOC: HO.LAB 12:52
PROVIDERS: Visit Provider Urology
DX: C67.9 Malignant neoplasm of bladder, unspecified (principal); R39.9 Unspecified symptoms and signs involving the genitourinary system; N30.20 Other chronic cystitis without hematuria; R33.9 Retention of urine, unspecified; N39.0 Urinary tract infection, site not specified; Z79.899 Other long term (current) drug therapy
CPT/HCPCS: 52000; 81003; 87086; 88112; 99212

== ENCOUNTER 2024-09-21 12:52 | Outpatient (AMB) | payer MEDICARE, SELFPAY ==
--- NOTE | 2024-09-21 12:58 | MHC.OFFVIS ---
Intake Visit Reasons: cysto(Bladder Ca) Intake Note: Patient is Present for Cystoscopy Urology Med: Tamsulosin, Sildenafil Antibiotic Allergy:None Blood Thinner: None Last Cytology: 2021 URO- G Disposable Cystoscope lot: [id number] exp:12/22/2026 Allergies simvastatin Allergy (Unknown, Verified 03/21/24 11:41) Unknown martinez pepper Allergy (Verified 03/21/24 11:41) Anaphylaxis codeine Allergy (Verified 03/21/24 11:41) Unknown losartan Allergy (Verified 03/21/24 11:41) Flushing NSAIDS (Non-Steroidal Anti-Inflamma Allergy (Verified 03/21/24 11:41) Unknown HPI Comments Details: Addison is a very pleasant male. He is a patient of Dr Bazzi. He is seen for the following conditions - bladder cancer - nephrolithiasis - lower urinary tract symptoms - recurring UTI - incomplete bladder emptying started after stroke Higher PVR than typical Cystoscopy showed chronic cystitis with mucus Encouraged trial of bethanechol for bladder emptying Encouraged vitamin-C 1200 mg a day and cranberry capsules Six-month follow-up cysto for bladder cancer Nephrolithiasis Urolithiasis was diagnosed Many years ago. He passed stones frequently. Had previously had bladder stones.. The patient previously had kidney stones whose composition w Uric acid, a calcium oxalate 03/09 CaOx, CaPhO Imaging - 01/11 US right kidney 2.2 cm cyst, left kidney 2 small stones 2 mm Current symptoms include None Bladder Cancer: Diagnosed in October 2012. TURBT. TA low-grade. -Imaging October 2012 negative -Cytology March 2015 negative, Sep 2016 negative, 03/07 Negative, 03/08 Normal -Cystoscopy August 2015 negative, February 2016 negative, Aug 2016 negative, February 2017 Negative, February 2018 Negative August 2018 Negative February 2019 NAD Aug 2019 NAD - has large median lobe on prostate. - Aug 2020 NAD - small harmatoma posterior wall - 03/11 NAD, 09/10 NAD, 09/11 Cystitis chronic Lower Urinary Tract Symptoms: Current visit is for further evaluation of, lower urinary tract symptoms, predominate obstructive symptoms. Current treatment includes flomax, finasteride - had stroke with significant initial deficit Prostate Symptom Score 09/08 , Mild (0-8), Bother 2. Symptoms include 09/08 , incomplete emptying, weak stream, and are stable. PSA 03/2019 1.9 per patient 05/2020 2.35 [facility] Medical History CVA (cerebral vascular accident) Seizures Hx of carpal tunnel syndrome Hx of glossitis Hyperlipidemia History of cardioversion Atrial fibrillation OA (osteoarthritis) Benign prostatic hyperplasia with lower urinary tract symptoms Other retention of urine Acute cystitis without hematuria Bilateral nephrolithiasis Bladder calculi Bladder CA in situ Surgical History History of total left knee replacement History of total right knee replacement History of total hip replacement Hx of carpal tunnel repair Hx of eye surgery Hx of arthroscopy of knee H/O colonoscopy Hx of brain surgery History of surgery Family History Father Lung cancer Social History Patient Tobacco Use Status: Never used Tobacco Review of Systems Const Denies chills and Denies fever(s) Card Reports no additional complaints and Denies syncope Resp Denies cough GI Denies abdominal pain and Denies heartburn Reports as per HPI and Denies change in libido Neuro Denies syncope Psych Denies change in libido Endo Denies change in libido Physical Exam Const General: cooperative, healthy appearing, comfortable and no acute distress Orientation/consciousness: patient oriented x3 HEENT Face and sinus: Yes normal facial exam Mouth: moist mucous membranes Neck Neck: Yes normal visual inspection, Yes full ROM and Yes trachea midline Chest Chest palpation & inspection: normal inspection of the chest Resp Effort & Inspection: normal respiratory effort, able to speak in complete sentences and no respiratory distress GI Inspection: Yes normal to inspection Back/Spine/Pelvis Cervical Spine: normal cervical lordosis Thoracic/Lumbar Spine: thoracic and lumbar spine normal to inspection Skin General skin exam: no rashes or lesions noted Neuro General: patient oriented x3, gait normal, tone normal and moves all extremities Extrem General: Yes normal to inspection and Yes capillary refill normal Office Procedures Cystoscopy Consent Discussed risk and benefit or proposed procedure with the patient. Information consent for procedure given to the patient. Discussed technical aspects, risks, benefits and alternatives in full. Addressed all of the patient's questions and concerns regarding the procedure. The patient demonstrated knowledge and understanding. They wish to proceed with this procedure. Preparation The patient was prepped in the usual manner. A top tile decorator was present and in the room. Genitalia was prepped with betadine solution in a sterile manner. Lidocaine Jelly 2% was placed into the urethra and 16Fr flexible Olympus cystoscope was inserted into the meatus after adequate lubrication. Procedure Cystoscopy performed using a disposable Urovue digital 16 Greenlandic cystoscope. Meatus circumcised Urethra anterior and posterior urethra normal Prostatic Urethra TURP defect Bladder examination with retroflexion of cystoscope Bladder Orifices normal shape and position Bladder Capacity median Trabeculations grade 1 Cellule Formation no Diverticulum Formation no Mucosal Erythema chronic cystitis Bladder Tumor - [id number]-[id number] DISPOSABLE SCOPE URO-G FLEXIBLE SCOPE Procedure code (CPT) selection complete Office Meds lidocaine HCl 2 % mucosal jelly in applicator Performing Provider: Ji Hollis MD Performing [place] [facility] Administered by: Wolf Jenkins LPN on 09/21/24 13:19 Dose Route Admin Location Dispensed Lot Number Expiration Date [facility] Funnel Coater 10 mL intra-urethral 10 mL nitrofurantoin monohydrate/macrocrystals 100 mg capsule Performing Provider: Ji Hollis MD Performing [place] [facility] Administered by: Wolf Jenkins LPN on 09/21/24 13:19 Dose Route Admin Location Dispensed Lot Number Expiration Date [place] Funnel Coater 100 mg PO 1 cap naproxen 500 mg tablet Performing Provider: Ji Hollis MD Performing [place] [facility] Administered by: Wolf Jenkins LPN on 09/21/24 13:19 Dose Route Admin Location Dispensed Lot Number Expiration Date [place] Funnel Coater 500 mg PO 1 tab Results AMB Urinalysis, Automated UA Leukoctes 500 Pablo/uL Last Edit by ELMO Guzman on 09/21/24 13:06 UA Nitrite Positive Last Edit by ELMO Guzman on 09/21/24 13:06 UA Urobilinogen 0.2 mg/dL Last Edit by ELMO Guzman on 09/21/24 13:06 UA Protein 30 mg/dL Last Edit by ELMO Guzman on 09/21/24 13:06 UA pH 6.0 Last Edit by ELMO Guzman on 09/21/24 13:06 UA Blood 80 Ian/uL Last Edit by Cheyenne López, RMA on 09/21/24 13:06 UA Specific [place] 1.015 Last Edit by Cheyenne López, RMA on 09/21/24 13:06 UA Ketone Negative Last Edit by Cheyenne López, RMA on 09/21/24 13:06 UA Bilirubin 0 mg/dL Last Edit by Cheyenne López, RMA on 09/21/24 13:06 UA Glucose 0 mg/dL Last Edit by Cheyenne Rene, RMA on 09/21/24 13:06 Results Reviewed Results Reviewed: Laboratory Last Values Urine pH (Auto) 6.0 09/21/24 13:05 Specific [place] (Auto) 1.015 09/21/24 13:05 Urine Protein (Auto) 30 mg/dL 09/21/24 13:05 Glucose (UA)(Auto) 0 mg/dL 09/21/24 13:05 Urine Ketones (Auto) Negative 09/21/24 13:05 Urine Blood (Auto) 80 Ian/uL 09/21/24 13:05 Urine Nitrite (Auto) Positive 09/21/24 13:05 Urine Bilirubin (Auto) 0 mg/dL 09/21/24 13:05 Urine Urobilinogen (Auto) 0.2 mg/dL 09/21/24 13:05 Leukocyte Esterase (Auto) 500 Pablo/uL 09/21/24 13:05 Assessment & Plan Assessment & Plan (1) Bladder cancer: Code(s): C67.9 - Malignant neoplasm of bladder, unspecified Category: Medical (2) Chronic cystitis: Code(s): N30.20 - Other chronic cystitis without hematuria Category: Medical Plan One month follow-up tele, six-month follow-up cysto Orders: Orders Urine Cytology Today C67.9 - Malignant neoplasm of bladder, unspecified AMB Urinalysis Automated Today Z13.9 - Encounter for screening, unspecified AMB Cystoscopy Today C67.9 - Malignant neoplasm of bladder, unspecified Urine Culture Today R39.9 - Unspecified symptoms and signs involving the genitourinary system Medications: New bethanechol chloride 50 mg PO BID 30 days 60 tabs 1RF N39.0 - Urinary tract infection, site not specified, R33.9 - Retention of urine, unspecified Patient Instructions: Imaging studies, laboratory and physical exam results were discussed and reviewed in detail. No major barriers to patient understanding were identified. An opportunity to ask questions regarding the treatment plan was provided. All questions were answered. The patient expressed understanding and agreement with the above treatment plan. The patient is aware they should contact our office by phone for worsening of their current condition or the appearance of new urologic symptoms. Compliance is encouraged with any medications and followup testing that is ordered. It is a privilege to participate in the urologic care of your patient. If you have any questions or concerns regarding treatment for the above conditions, or other urologic issues, please do not hesitate to contact me. The office telephone contact is [phone]. This note is constructed using voice recognition software. While every effort has been made to ensure accuracy open hearth melter errors may have been included. Yours sincerely, Dr Ji Hollis MD, [facility] - Urology Providers of Expert, Compassionate Care for the Genitourinary System Coding Level of Care Code Est Pt Level 4 (29331) Diagnoses Bladder cancer C67.9 Chronic cystitis N30.20 CPT Codes Cystoscopy - CPT: 30668-Nhjfwisaln ([id number])
== END 2024-09-21 13:57 | disposition home or self-care (01) ==
LOC: HO.HUSH 12:53
PROVIDERS: Visit Provider Urology
DX: C67.9 Malignant neoplasm of bladder, unspecified (principal); N30.20 Other chronic cystitis without hematuria; Z13.9 Encounter for screening, unspecified
CPT/HCPCS: 52000; 99214

== ENCOUNTER 2024-10-16 11:17 | Outpatient (AMB) | payer MEDICARE, SELFPAY ==
--- NOTE | 2024-10-16 11:19 | A.OFFVIS_ITS ---
Intake Visit Reasons: 1M Med Review(bethanechol) Intake Note: Patient is Present for 1M MED REVIEW Urology Med: Tamsulosin, Sildenafil Antibiotic Allergy:SIMVASTATIN Blood Thinner: None Glue Maker Required: No Allergies simvastatin Allergy (Unknown, Verified 10/16/24 11:20) Unknown martinez pepper Allergy (Verified 10/16/24 11:20) Anaphylaxis codeine Allergy (Verified 10/16/24 11:20) Unknown losartan Allergy (Verified 10/16/24 11:20) [place] NSAIDS (Non-Steroidal Anti-Inflamma Allergy (Verified 10/16/24 11:20) Unknown Medication List - Last Reconciled 10/16/24 by Ji Hollis MD alirocumab mg subcut bethanechol chloride 50 mg PO BID 30 days divalproex 500 mg PO BID divalproex 250 mg PO BID finasteride 5 mg PO DAILY fosfomycin tromethamine 1 packet PO .weekly levetiracetam 1,000 mg PO BID levetiracetam 1,500 mg PO BID levofloxacin 250 mg PO DAILY 5 days sildenafil 100 mg PO ONCE PRN 30 days sulfamethoxazole-trimethoprim 800-160 mg (Bactrim DS) 1 tab PO BID 7 days tamsulosin 0.4 mg PO BEDTIME 90 days HPI Comments Details: Addison is a very pleasant male. He is a patient of Dr Bazzi. He is seen for the following conditions - bladder cancer - nephrolithiasis - lower urinary tract symptoms - recurring UTI - incomplete bladder emptying started after stroke Telemedicine Evaluation 15 min Consultation [facility] Video He thinks he has had good effect from the bethanechol We will continue Due for cysto in 5 months Cystoscopy showed chronic cystitis with mucus Continue bethanechol for bladder emptying Encouraged vitamin-C 1200 mg a day and cranberry capsules Nephrolithiasis Urolithiasis was diagnosed Many years ago. He passed stones frequently. Had previously had bladder stones.. The patient previously had kidney stones whose composition w Uric acid, a calcium oxalate 03/09 CaOx, CaPhO Imaging - 01/11 US right kidney 2.2 cm cyst, left kidney 2 small stones 2 mm Current symptoms include None Bladder Cancer: Diagnosed in October 2012. TURBT. TA low-grade. -Imaging October 2012 negative -Cytology March 2015 negative, Sep 2016 negative, 03/07 Negative, 03/08 Normal -Cystoscopy August 2015 negative, February 2016 negative, Aug 2016 negative, February 2017 Negative, February 2018 Negative August 2018 Negative February 2019 NAD Aug 2019 NAD - has large median lobe on prostate. - Aug 2020 NAD - small harmatoma posterior wall - 03/11 NAD, 09/10 NAD, 09/11 Cystitis chronic Lower Urinary Tract Symptoms: Current visit is for further evaluation of, lower urinary tract symptoms, predominate obstructive symptoms. Current treatment includes flomax, finasteride - had stroke with significant initial deficit Prostate Symptom Score 09/08 , Mild (0-8), Bother 2. Symptoms include 09/08 , incomplete emptying, weak stream, and are stable. PSA 03/2019 1.9 per patient 05/2020 2.35 PFSH Medical History CVA (cerebral vascular accident) Seizures Hx of carpal tunnel syndrome Hx of glossitis Hyperlipidemia History of cardioversion Atrial fibrillation OA (osteoarthritis) Benign prostatic hyperplasia with lower urinary tract symptoms Other retention of urine Acute cystitis without hematuria Bilateral nephrolithiasis Bladder calculi Bladder CA in situ Surgical History History of total left knee replacement History of total right knee replacement History of total hip replacement Hx of carpal tunnel repair Hx of eye surgery Hx of arthroscopy of knee H/O colonoscopy Hx of brain surgery History of surgery Family History Father Lung cancer Social History Patient Tobacco Use Status: Never used Tobacco Review of Systems Const All systems reviewed & are unremarkable except as noted in HPI and below Reports no additional complaints Resp Reports no additional complaints GI Reports no additional complaints Reports as per HPI Musc Reports no additional complaints Physical Exam Telemedicine evaluation Appropriate responses Regular breathing rate and rhythm HEENT Head: Yes normal to inspection Ears: hearing grossly normal bilaterally Eyes General: appearance normal, both eyes and all related structures Neck Neck: Yes normal visual inspection Chest Chest palpation & inspection: normal inspection of the chest Resp Effort & Inspection: normal respiratory effort and able to speak in complete sentences Telehealth Telehealth [facility] Location of provider rendering services: practice address Location of patient: address on file Patient Identification confirmed using: Name, : Yes Telehealth method: video Patient verbally consented to treatment: Yes Patient verbally consented to billing insurance company: Yes Patient informed of any privacy concerns related to visit: Yes Minutes spent on Phone/Video with Pt.: 15 Assessment & Plan Assessment & Plan (1) Urinary retention with incomplete bladder emptying: Comment: Worsened following stroke in 2020 Code(s): R33.9 - Retention of urine, unspecified Category: Medical (2) Bladder cancer: Code(s): C67.9 - Malignant neoplasm of bladder, unspecified Category: Medical Plan Five month follow-up cysto Remain on bethanechol Medications: Changed From bethanechol chloride 50 mg PO BID 30 days 60 tabs 1RF N39.0 - Urinary tract infection, site not specified, R33.9 - Retention of urine, unspecified To bethanechol chloride 50 mg PO BID 90 days 180 tabs 1RF N39.0 - Urinary tract infection, site not specified, R33.9 - Retention of urine, unspecified Discontinued levofloxacin Discontinued Reason: Patient Completed Course 250 mg PO DAILY 5 days 5 tabs 0RF tamsulosin Discontinued Reason: Patient Completed Course 0.4 mg PO BEDTIME 90 days 90 caps 1RF N40.1 - Benign prostatic hyperplasia with lower urinary tract symptoms, R35.1 - Nocturia sulfamethoxazole-trimethoprim 800-160 mg (Bactrim DS) Discontinued Reason: Doctor's Order 1 tab PO BID 7 days 14 tabs 0RF Patient Instructions: Imaging studies, laboratory and physical exam results were discussed and reviewed in detail. No major barriers to patient understanding were identified. An opportunity to ask questions regarding the treatment plan was provided. All questions were answered. The patient expressed understanding and agreement with the above treatment plan. The patient is aware they should contact our office by phone for worsening of their current condition or the appearance of new urologic symptoms. Compliance is encouraged with any medications and followup testing that is ordered. It is a privilege to participate in the urologic care of your patient. If you have any questions or concerns regarding treatment for the above conditions, or other urologic issues, please do not hesitate to contact me. The office telephone contact is [phone]. This note is constructed using voice recognition software. While every effort has been made to ensure accuracy home care attendant errors may have been included. Yours sincerely, Dr Ji Hollis MD, [facility] - Urology Providers of Expert, Compassionate Care for the Genitourinary System Coding Level of Care Code Tele Est Pt Level 3 (50857) Diagnoses Urinary retention with incomplete bladder emptying R33.9 Bladder cancer C67.9
--- OUTSIDE RECORDS SUMMARY | 2024-10-16 11:19 | XMS_ITS | Continuity of Care Document ---
Author Organization [facility] Address [address] [place] [address]- Encounter [facility] Date(s): 02/14/24 - 02/15/[address] [address]- Discharge Disposition: A-D/C Home Attending Physician: Mac Marlow MD Admitting Physician: Mac Marlow MD Referring Physician: Not on Staff, Referring MD Allergies, Adverse Reactions, Alerts Substance Reaction Severity Status naproxen Active Other Environmental Allergy green peppers Active Immunizations Given and Recorded Vaccine Date Status Refusal Reason tetanus/diphtheria/pertussis, acel(Tdap) 02/08/21 Given diphtheria-tetanus toxoids (DT) 05/12/05 Given Medications amLODIPine 5 mg oral tablet 5 mg, 1, tablet, By Mouth, Daily, Refills 0, Maintenance, 04/27/21 12:19:00 EDT, Partial fill upon patient request if the prescription is for a schedule II opioid drug. Start Date: 04/27/21 Status: Ordered Colace Clear = 50 mg, By Mouth, 2 times a day, 0 Refills, Maintenance, 04/12/21 10:47:00 EDT, Partial fill upon patient request if the prescription is for a schedule II opioid drug. Start Date: 04/12/21 Status: Ordered Depakote 250 mg oral enteric coated tablet 3 tablet = 750 mg, By Mouth, 3 times a day, # 270 tablet, 1 Refills, Maintenance, 06/09/21 16:44:00EDT, [facility], Partial fill upon patient request if the prescription is for a schedule II opioid drug., 201, cm, 04/27/21 12:57:00 E... Start Date: 06/09/21 Status: Ordered divalproex sodium 250 mg oral enteric coated tablet = 750 mg, By Mouth, 3 times a day, 0 Refills, Maintenance, 04/27/21 12:14:00 EDT, Tablet, Partial fill upon patient request if the prescription is for a schedule II opioid drug. Start Date: 04/27/21 Status: Ordered levETIRAcetam 500 mg oral tablet 3 tablet = 1,500 mg, By Mouth, 2 times a day, 0 Refills, Maintenance, 04/27/21 12:15:00 EDT, Tablet, Partial fill upon patient request if the prescription is for a schedule II opioid drug. Start Date: 04/27/21 Status: Ordered levETIRAcetam 750 mg oral tablet 2 tablet = 1,500 mg, By Mouth, 2 times a day, # 120 tablet, 1 Refills, Maintenance, 06/09/21 16:44:00 EDT, Tablet, [facility], Partial fill upon patient request if the prescription is for a schedule II opioid drug., 201, cm, 04/27/21... Start Date: 06/09/21 Status: Ordered Praluent Pen 75 mg/mL subcutaneous solution = 75 mg, Subcutaneous Infusion, Every 30 days, 0 Refills, Maintenance, 04/12/21 10:49:00 EDT, Partial fill upon patient request if the prescription is for a schedule II opioid drug. Start Date: 04/12/21 Status: Ordered tranexamic acid 650 mg oral tablet 1 tablet = 650 mg, By Mouth, Daily, last dose on may 09, # 12 tablet, 0 Refills, Maintenance, 04/27/21 12:17:00 EDT, Tablet, Partial fill upon patient request if the prescription is for a scheduleII opioid drug. Start Date: 04/27/21 Status: Ordered Problem List Condition Confirmation Course Effective Dates Status Health St atus Informant Hemorrhagic stroke Confirmed Active Seizure disorder Confirmed Active Results Radiology Reports * Exam Date Time Procedure Performing Provider Status 02/14/24 11:24 AM Knee 1 or 2 Views Right Anjali Greene; Auth (Verified) Notes: (Knee 1 or 2 Views Right) Reason For Exam: Trauma RESULT: Knee 1 or 2 Views Right Knee 1 or 2 Views Left, Knee 1 or 2 Views Right, Hx of Present Illness: Pt from home, c o neck and L shoulder pain s p mechanical fall this morning.Pt states he missed a step while trying to go to the bathroom, fell on his L side. Not on thinners.Pt states he had a prostate procedure done yesterday, FC was displaced.; Reason: Trauma; Clinical Question(s): Fracture COMPARISON: None available. FINDINGS: No acute bone lesions or fractures. 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 No evidence of hardware malfunction. No periprosthetic fracture. No evidence of joint effusion. Scattered vascular calcification posterior to knee. Right knee: No acute bone lesions or fractures. 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 No evidence of hardware malfunction. No periprosthetic fracture. Scattered vascular calcification posterior to knee. No evidence of joint effusion. IMPRESSION: 1. No acute fracture or malalignment. 2. Postoperative changes of both knees following prior cemented total knee arthroplasty and patellar resurfacing. WSN: [id number] Ordering Physician: Geraldo Wen Dictated By: Kwaku Oconnor MD Dictated Date/Time: 02/14/24 11:46 a Reviewed By: Kwaku Oconnor MD Signed By: Kwaku Oconnor MD Signed Date/Time: 02/14/24 11:46 am Transcribed By: LIYAH Transcribed Date/Time: 02/14/24 11:42 am * Exam Date Time Procedure Performing Provider Status 02/14/24 11:24 AM Knee 1 or 2 Views Left Forbes; Auth (Verified) Notes: (Knee 1 or 2 Views Left) Reason For Exam: Trauma RESULT: Knee 1 or 2 Views Left Knee 1 or 2 Views Left, Knee 1 or 2 Views Right, Hx of Present Illness: Pt from home, c o neck and L shoulder pain s p mechanical fall this morning.Pt states he missed a step while trying to go to the bathroom, fell on his L side. Not on thinners.Pt states he had a prostate procedure done yesterday, FC was displaced.; Reason: Trauma; Clinical Question(s): Fracture COMPARISON: None available. FINDINGS: No acute bone lesions or fractures. 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 No evidence of hardware malfunction. No periprosthetic fracture. No evidence of joint effusion. Scattered vascular calcification posterior to knee. Right knee: No acute bone lesions or fractures. 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 No evidence of hardware malfunction. No periprosthetic fracture. Scattered vascular calcification posterior to knee. No evidence of joint effusion. IMPRESSION: 1. No acute fracture or malalignment. 2. Postoperative changes of both knees following prior cemented total knee arthroplasty and patellar resurfacing. WSN: [id number] Ordering Physician: Geraldo Wen Dictated By: Kwaku Oconnor MD Dictated Date/Time: 02/14/24 11:46 a Reviewed By: Kwaku Oconnor MD Signed By: Kwaku Oconnor MD Signed Date/Time: 02/14/24 11:46 am Transcribed By: LIYAH Transcribed Date/Time: 02/14/24 11:42 am * Exam Date Time Procedure Performing Provider Status 02/14/24 11:24 AM Shoulder Min 2 Views Left Ira Greene; Auth (Verified) Notes: (Shoulder Min 2 Views Left) Reason For Exam: Trauma RESULT: Shoulder Min 2 Views Left Shoulder 2 Views Left, Reason: Trauma; Clinical Question(s): Fracture COMPARISON: None. FINDINGS: No fracture or dislocation. Severe glenohumeral joint space narrowing and marginal spurring. Mild degenerative changes of the AC joint. The portion of the clavicle included on the exam is normal. No calcification of the rotator cuff. IMPRESSION: 1. No evidence of acute fracture or dislocation. 2. Severe osteoarthritis of the glenohumeral joint. I have personally reviewed the images and I agree with this report. WSN: [id number] Ordering Physician: Geraldo Wen Dictated By: Kel Hawthorne MD Dictated Date/Time: 02/14/24 12:11 p Reviewed By: Kwaku Oconnor MD Signed By: Kwaku Oconnor MD Signed Date/Time: 02/14/24 12:16 pm Transcribed By: LIYAH Transcribed Date/Time: 02/14/24 11:45 am * Exam Date Time Procedure Performing Provider Status 02/14/24 11:[address] Cervical Spine W/O Contrast Melissa Louie; Auth (Verified) Notes: (CT Cervical Spine W/O Contrast) Reason For Exam: Neck trauma, dangerous injury mechanism;Other: RESULT: CT Cervical Spine W/O Contrast Examination: Noncontrast head CT and noncontrast CT of the cervical spine performed on 02/14/2024. History: Mechanical fall. Technique and findings: Noncontrast head CT: Contiguous 5 mm axial images were obtained from the skull base to the vertex without intravenous contrast. A dose modulated weight-based protocol was used. Comparison is made to a prior study dated 05/15/2021. The visualized sinuses are free from disease. Ex vacuo dilatation of the anterior horn of the right lateral ventricle is seen secondary to adjacent encephalomalacia within the right frontal lobe. There is no intracranial hemorrhage, mass effect,or midline shift. No intra- or extra- axial fluid collections are identified. Bilateral frontal craniotomy defects are seen. Lucencies within the left occipital bone are unchanged and may represent arachnoid granulations. Noncontrast CT of the cervical spine: Contiguous axial images were obtained from the lung base through the thoracic inlet without intravenous contrast. Sagittal and coronal reformatted images are provided. A dose modulated weight-based protocol was used. No fractures are demonstrated. There is disc space narrowing with degenerative loss of height and osteophyte formation at the C5-C6 level with a 0.1 cm anterolisthesis of C3-C4 on C5. There is no traumatic disc herniation or epidural hematoma. Impression: Stable chronic encephalomalacia. There is no acute intracranial abnormality. Degenerative disc disease within the cervical spine. There is no acute osseous abnormality. WSN: [id number] Ordering Physician: Geraldo Wen Dictated By: Nel Davis MD Dictated Date/Time: 02/14/24 11:42 a Reviewed By: Nel Davis MD Signed By: Nel Davis MD Signed Date/Time: 02/14/24 11:42 am Transcribed By: LIYAH Transcribed Date/Time: 02/14/24 11:39 am * Exam Date Time Procedure Performing Provider Status 02/14/24 11:[address] Head/Brain W/O Contrast Noelle Louie; Devorah (Verified) Notes: (CT Head/Brain W/O Contrast) Reason For Exam: Trauma RESULT: CT Head/Brain W/O Contrast Examination: Noncontrast head CT and noncontrast CT of the cervical spine performed on 02/14/2024. History: Mechanical fall. Technique and findings: Noncontrast head CT: Contiguous 5 mm axial images were obtained from the skull base to the vertex without intravenous contrast. A dose modulated weight-based protocol was used. Comparison is made to a prior study dated 05/15/2021. The visualized sinuses are free from disease. Ex vacuo dilatation of the anterior horn of the right lateral ventricle is seen secondary to adjacent encephalomalacia within the right frontal lobe. There is no intracranial hemorrhage, mass effect,or midline shift. No intra- or extra- axial fluid collections are identified. Bilateral frontal craniotomy defects are seen. Lucencies within the left occipital bone are unchanged and may represent arachnoid granulations. Noncontrast CT of the cervical spine: Contiguous axial images were obtained from the lung base through the thoracic inlet without intravenous contrast. Sagittal and coronal reformatted images are provided. A dose modulated weight-based protocol was used. No fractures are demonstrated. There is disc space narrowing with degenerative loss of height and osteophyte formation at the C5-C6 level with a 0.1 cm anterolisthesis of C3-C4 on C5. There is no traumatic disc herniation or epidural hematoma. Impression: Stable chronic encephalomalacia. There is no acute intracranial abnormality. Degenerative disc disease within the cervical spine. There is no acute osseous abnormality. WSN: [id number] Ordering Physician: Geraldo Wen Dictated By: Nel Davis MD Dictated Date/Time: 02/14/24 11:42 a Reviewed By: Nel Davis MD Signed By: Nel Davis MD Signed Date/Time: 02/14/24 11:42 am Transcribed By: LIYAH Transcribed Date/Time: 02/14/24 11:39 am Vital Signs Most recent to oldest [Reference Range]: 1 2 3 Height 201 cm (02/15/24 1:13 PM) 201 cm (02/15/24 7:46 AM) 201 cm (02/14/24 10:26 PM) Weight 97.5 kg (02/15/24 7:46 AM) 97.5 kg (02/14/24 10:26 PM) 97.5 kg (02/14/24 9:02 PM) Oxygen Saturation [94-100 %] 97 % (02/15/24 1:13 PM) 95 % (02/15/24 7:46 AM) 95 % (02/15/24 5:00 AM) Pulse Rate [55-90 bpm] 73 bpm (3/27/24 1:13 PM) 67 bpm (02/15/24 7:46 AM) 70 bpm (02/15/24 5:00 AM) Body Mass Index [18.5-24.99 kg/m2] 24.13 kg/m2 (02/15/24 7:46 AM) 24.13 kg/m2 (02/14/24 10:26 PM) 24.13 kg/m2 (02/14/24 9:02 PM) Blood Pressure [90-138/55-84 mm Hg] 139/93mm Hg *H* (02/15/24 1:13 PM) 126/75mm Hg (02/15/24 7:46 AM) 121/76mm Hg (02/15/24 5:00 AM) Respiratory Rate [16-30 br/min] 16 br/min (02/15/24 1:13 PM) 16 br/min (02/15/24 7:46 AM) 18 br/min (02/15/24 5:00 AM) Temperature [96.8-100.4 DegF] 97.5 DegF (02/15/24 1:13 PM) 98.6 DegF (02/15/24 7:46 AM) 99.5 DegF (02/15/24 5:00 AM) Mode of Delivery (Oxygen) Room air (02/15/24 1:13 PM) Room air (02/15/24 7:46 AM) Room air (02/15/24 5:00 AM) Blood pressure sites Arm, left (02/15/24 1:13 PM) Arm, left (02/15/24 5:00 AM) Arm, left (02/14/24 10:26 PM) Temperature Route Oral (02/15/24 1:13 PM) Oral (02/15/24 7:46 AM) Axillary (02/15/24 5:00 AM) Dry Weight 97.5 kg (02/15/24 7:46 AM) 97.5 kg (02/14/24 10:26 PM) 97.5 kg (02/14/24 9:02 PM) Weight Obtained Via Patient/family state d (02/14/24 10:12 AM) Dry Weight Obtained Via Patient lift flores ging scale (02/14/24 10:12 AM) Social History Social History Type Response Smoking Status Never smoker entered on: 08/18/14 Sex Note * Meliza Yee: PERFORM, SIGN, VERIFY Event Display: Case Management Discharge Plan Authored Date: [id number] Patient: KASSI MOSES Age: 73 years Sex: Male : 1950 Associated Diagnoses: None Author: Meliza Yee Discharge Plan Case Management Discharge Plan : Case Management Discharge Plan Data 02/15/2024 14:06 EDT Discharge Level of Care at Discharge Homehealth/VNA Discharge VNA/Hospice/Home Care [place] [address] Name of Agency #1 [facility] Service Categories #1 Physical Therapy, Group Home * Bettye SAEED, Geraldo Hairston: PERFORM Event Display: Patient Education Leaflets Authored Date: [id number] Greene Catheter Care ?? [id number] Greene Catheter Care A Greene catheter is a rubber tube that is placed through the urethra and into the bladder. The urethra is the opening where urine comes out. The catheter helps drain urine from the bladder. There is a small balloon on the end of the tube that is inflated after the catheter is put in place. This keeps the catheter from sliding out of the bladder. A Greene catheter is used when you are unable to pass urine (urinary retention). It's also used whenthere is loss of bladder control (incontinence). It's also used after bladder or prostate surgery. Home care ??? Finish taking any prescribed antibiotic medicine even if you are feeling better before then. ??? It's important to keep bacteria from getting into the collection bag. Don't disconnect the catheter from the collection bag. ??? Use a leg band to secure the drainage tube, so it doesn't pull on the catheter. ??? Don't try to pull or remove your catheter. This will injure your urethra. It must be removed by your healthcare provider or nurse. ??? Drain the collection bag when it becomesfull using the drain spout at the bottom of the bag. ?? Follow-up care Follow up with your healthcare provider, or as advised. This is for repeat urine testing and for catheter removal or replacement. ?? When to seek medical advice Call your healthcare provider right away if any of these occur: ??? Fever of 100.4??F (38??C) or higher, or as directed by your healthcare provider ??? Bladder pain or fullness ??? Abdominal swelling, nausea or vomiting, or back pain ??? Blood or urine leakage around the catheter ??? Bloody urine coming from the catheter (if a new symptom) ??? Catheter falls out ??? Catheter stops draining for 6 hours ??? Weakness, dizziness, or fainting ?? Last Reviewed Date: 2021 ?? [employer]. All rights reserved. This information is not intended as a substitute for professional medical care. Always follow your healthcare professional's instructions. ?? * Bettye SAEED, Geraldo Hairston: PERFORM Event Display: Patient Education Leaflets Authored Date: [id number] After a Fall ?? [id number] After a Fall You have had a fall today. That means that you slipped, tripped, or lost your balance. If your fallwas because of fainting or a seizure,??you might need other??tests. It is normal to feel sore and tight in your muscles and back the next day, and not just the musclesyou injured. Remember, all the parts of your body are connected, so while one area hurts now, the next day another may hurt. Also, when you injure yourself, it causes inflammation. This then causes the muscles to tighten up and hurt more. After the initial worsening symptoms, they should slowly improve over the next few days. Tell your healthcare provider if you have more severe pain. Even without a definite head injury, you can still get a concussion from your head suddenly jerkingforward, backward, or sideways when you fall. This is especially true if you have had concussions in the past. Concussions and even bleeding can still happen, especially if you had a recent injury ortake blood thinner medicine. It is not unusual to have a mild headache and feel tired and even nauseous or dizzy.?? Home care ??? Rest today and return to your normal activities when you are feeling back to normal. ??? If you were injured during the fall, follow the advice from your healthcare provider about how to care for your injury. ??? At first, don't try to stretch out the sore spots. If there is a strain,stretching may make it worse. Massage may help relax the muscles without stretching them. ??? Use an ice pack or cold compress on and off at the sore spots for 10 to 20 minutes at a time, as often asyou feel comfortable. This may help reduce the inflammation, swelling, and pain. ??? Know that if you have any scrapes (abrasions), they often heal within??10 days. Keep the scrapes clean while they start to heal. But an infection may happen even with correct care. So watch for early signs of infection (such as warmth, redness, or swelling). ?? Medicines ??? Talk with your healthcare provider before taking new medicines, especially if you have other health problems or are taking other medicines. ??? If you need anything for pain, use acetaminophen or ibuprofen, unless you were given a different pain medicine to use.??Talk with your healthcare provider before using these medicines if you: o Have chronic liver or kidney disease o Ever hada stomach ulcer or??gastrointestinal bleeding o Are taking blood-thinner medicines ??? Be careful if you are given prescription pain medicines, narcotics, or medicine for muscle spasms. They can makeyou sleepy and dizzy. And they can affect your coordination, reflexes, and judgment. Don't drive ordo work where you can hurt yourself when taking them. ?? Fall prevention ??? Fix, remove, or replace anything that caused your fall. ??? Make your home safeby keeping walkways clear of objects you could trip over. ??? Use nonslip pads under rugs. Don't use small??area rugs or throw rugs. ??? Don't walk in poorly lit areas. ??? Don't stand on chairs or wobbly ladders. ??? Be careful when reaching overhead or looking upward. This position can cause a loss of balance. ??? Be sure your shoes fit correctly, have nonslip bottoms, and are in good condition. ??? Be careful when going up and down curbs, and walking on uneven sidewalks. ??? If your balance is poor, think about using a cane or walker. ??? Stay as active as you can. Balance, flexibility, strength, and endurance all come from exercise. They all play a role in preventing falls. ??? If you have pets, know where they are before you stand up or walk so you don't trip over them. ??? Limit alcohol intake. Alcohol can cause balance problems and increase the risk for falls. ??? Use night-lights. ??? Have your eyes tested to be sure you are seeing well, even if you already wear glasses.? Follow-up Follow up with your healthcare provider, or as advised. If X-rays or CT scans were done, you will be told if there is a change in the reading, especially if it affects treatment. ?? Call 911 Call 911 if any of these happen: ??? Trouble breathing ??? Confusion ??? Trouble waking up ??? Fainting or loss of consciousness ??? Fast or very slow heart rate ??? Seizure ??? Trouble with speech or vision, weakness of an arm or leg ??? Trouble walking or talking, loss of balance, numbness or weakness on one side of your body, or facial droop ?? When to get medical advice Call your healthcare provider right away if any of these happen: ??? Repeated falls, including falls that seem to happen for no reason ??? Dizziness ??? Severe headache ??? Blood in vomit or stools (look black or red in color) ?? Last Reviewed Date: 2022 ?? [id number] [employer]. All rights reserved. This information is not intended as a substitute for professional medical care. Always follow your healthcare professional's instructions. ?? * Bettye SAEED, Geraldo Hairston: PERFORM Event Display: Patient Education Leaflets Authored Date: [id number] Fall??Prevention ?? [id number] Fall??Prevention Falls often take place due to slipping, tripping, or losing your balance. Millions of people fall every year and injure themselves.??Among older adults in the [place] falls are the most common cause oftraumatic brain injuries. Every 20 minutes, an older adult dies from a fall. Here are ways to reduce your risk of falling again: ??? Think about your fall. Was there anything that caused your fall that can be fixed, removed, or replaced? Make your home safe by keeping walkways clear of objects you may trip over, such as electrical cords. ??? Use nonslip pads under rugs. Don't use area rugs orsmall throw rugs. ??? Use nonslip mats in bathtubs and showers. ??? Hang grab rails by the toilet and inside and outside the shower. ??? Install handrails and lights on staircases. The handrails should be on both sides of the stairs. ??? Use night lights. ??? Don't walk in poorly lit areas. ??? Don't stand on chairs or wobbly ladders. ??? Use care when reaching overhead or looking up.??This position can cause a loss of balance. ??? Be sure your shoes fit well, are in good condition, and have non slip bottoms.? Wear shoes both inside and outside of your home. Don't go barefoot or wear slippers. ??? Be cautious when going up and down stairs, curbs, and when walking on uneven sidewalks. ??? If your balance is poor, consider using a cane or walker. Talk with your healthcare provider abouthaving a balance assessment. ??? If your fall was related to alcohol use, stop or limit alcohol intake.??Ask your provider for help if you think you may overuse alcohol and can't stop. ??? If your fall was related to use of sleeping medicines, talk with your provider about this.??You may need to reduce your dosage at bedtime if you wake up during the night to go to the bathroom.? To reducethe need for nighttime bathroom trips: o Don't drink fluids for several hours before going to bed oEmpty your bladder before going to bed o Men can keep a urinal at the bedside ??? Stay as active asyou can. Balance, flexibility, strength, and endurance all come from exercise. They all play a rolein preventing falls. Ask your provider which types of activity are right for you. Try to do some type of exercise every day. ??? Get your eyes checked once a year or more often if your vision changes??? If you have pets, know where they are before you stand up or walk so you don't trip over them. ??? Go over all your medicines with a pharmacist or other provider. This is to see if any of them could make you more likely to fall. Have this type of medicine review at least once every year. ??? Ifyour provider advises a new medicine, ask if the side effects will affect your balance. ??? Don't move quickly from one position to another. For instance, don't stand up fast from sitting. This can cause dizziness and may lead to a fall. ??? Sit down when putting on pants, socks, and shoes. This will make you less likely to lose your balance and fall. ??? Always let your provider know if you havefallen since your last visit. ??? Contact your provider right away if you're having balance problems or falling more often. Last Reviewed Date: 2021 ?? [id number] [employer]. All rights reserved. This information is not intended as a substitute for professional medical care. Always follow your healthcare professional's instructions. ?? Patient Care team information Care Team Personnel Name: Remy Garcia RN Position: [facility] ED RN W/OE and Tasks Member Role: Primary Care Nurse Name: Jennifer Cruz RN Position: [facility] ED RN W/OE and Tasks Member Role: Primary Care Nurse Name: Adeola Medley RN Position: [facility] RN Member Role: Primary Care Nurse Name: Cary Treviño RN Position: S RN Member Role: Primary Care Nurse Name: Sarah Peters RN Position: [facility] RN Supv Member Role: Primary Care Nurse Name: Sarai Thayer RN Position: S RN Member Role: Primary Care Nurse Name: Davis De Jesus RN Position: S RN Member Role: Primary Care Nurse Name: Deana Murrell NP Position: [facility] Associate Professional Member Role: Primary Care Nurse Address: Address: [address] [place] [address] [place] [address]- Care Team Related Persons Name: WILLIAM MARCIAL Address: home [address] [place] [address] Name: GAGE MOSES Address: [address] [place] [address]
== END 2024-10-16 13:27 | disposition home or self-care (01) ==
LOC: HO.HUSH 11:17
PROVIDERS: Visit Provider Urology
DX: R33.9 Retention of urine, unspecified (principal); C67.9 Malignant neoplasm of bladder, unspecified
CPT/HCPCS: 99213

== ENCOUNTER → 2024-10-16 11:17 | Outpatient (BNVA) | payer MEDICARE, SELFPAY | PROVIDERS: Visit Provider Urology ==